=== PATIENT | female | born 1985 | race Caucasian/White ===

== ENCOUNTER 2017-06-05 09:11 | Emergency (ER) | payer MEDICAID ==
[2017-06-05] MEDS: FAMOTIDINE 20 MG TAB PO (09:56)
[2017-06-05] MEDS: predniSONE 20 MG TAB PO (09:56)
[2017-06-05] MEDS: DIPHENHYDRAMINE 50 MG INJ IM (09:59)
== END 2017-06-05 10:19 | disposition home or self-care (01) ==
LOC: FTE 09:11
DX: R21 Rash and other nonspecific skin eruption (principal)
CPT/HCPCS: 96372; 99284-25